=== PATIENT | male | born 1950 | race Hispanic/Latino ===

== ENCOUNTER 2017-08-30 20:02 | Emergency (ER) | payer BC ==
[2017-08-30 20:19] VITALS: O2SAT 98
[2017-08-30 20:43] VITALS: BP 185/65; PULSE 41; RESP 16; TEMP 97.5
[2017-08-30] MEDS ORDERED: TDAP Vaccine 0.5 mL Syr IM ONE (22:19)
--- NOTE | 2017-08-30 22:19 | ED PDOC ---
Arrival/HPI - General Chief Complaint: Upper Extremity Problem/Injury Time Seen by Provider: 08/30/17 20:46 Historian: Patient - History of Present Illness Narrative History of Present Illness (Text): 08/31/17 20:55 66 year old male, who has no significant past medical history presents to the emergency department complaining of slamming his right second digit on his car door at 7AM. Patient denies any numbness, decreased ROM, or any other complaints /injuries. Patient's Tetanus shot is up to date. Time/Duration: Other (This morning ) Symptom Onset: Sudden Symptom Course: Unchanged Activities at Onset: Light Context: Other (Car) Past Medical History - Provider Review Nursing Documentation Reviewed: Yes - Infectious Disease Hx of Infectious Diseases: None - Cardiac Hx Hypertension: Yes - Psychiatric Hx Substance Use: No Family/Social History - Physician Review Nursing Documentation Reviewed: Yes Family/Social History: No Known Family HX Smoking Status: Unknown If Ever Smoked Hx Alcohol Use: No Hx Substance Use: No Allergies/Home Meds Allergies/Adverse Reactions: Allergies No Known Allergies Allergy (Verified 08/30/17 20:17) Home Medications: Home Meds Medication Instructions Recorded Confirmed Nebivolol [Bystolic] 20 mg PO HS 08/30/17 08/30/17 Valsartan [Diovan] 320 mg PO DAILY 08/30/17 08/30/17 hydrALAZINE [hydralazine 0 mg PO HS 08/30/17 08/30/17 Hydrochloride] Review of Systems - Physician Review All systems were reviewed & negative as marked: Yes - Review of Systems Skin: Laceration (on right seconf digit ) Neurological: absent: Other ((-) Numbness on right second digit (-) Decreased ROM) Physical Exam Vital Signs Temp Pulse Resp BP Pulse Ox 08/30/17 20:40 97.5 F L 41 L 16 185/65 H 98 08/30/17 20:09 98.4 F 42 L 20 193/75 H 98 Temperature: Afebrile Blood Pressure: Hypertensive Pulse: Tachycardic Respiratory Rate: Normal Appearance: Positive for: Well-Appearing, Non-Toxic Pain Distress: None Mental Status: Positive for: Alert and Oriented X 3 - Systems Exam Head: Present: Atraumatic, Normocephalic Neck: Present: Normal Range of Motion Back: Present: Normal Inspection Upper Extremity: Present: Normal Inspection, Normal ROM, Other ((+) Distal Sensation (+) 2cm V shaped laceration ). No: Cyanosis, Edema Lower Extremity: Present: Normal Inspection. No: Edema Neurological: Present: GCS=15, CN II-XII Intact, Speech Normal Skin: Present: Warm, Dry, Normal Color. No: Rashes Medical Decision Making ED Course and Treatment: 08/31/17 20:55 Impression: 66 year old male presents complaining of right second digit laceration s/p finger slamming on car door. Plan: -- Bacitracin -- Boostrix Vaccine Inj -- Tylenol -- Hand Right 2nd digit X-Ray -- Reassess and disposition Progress Notes: Performed by the emergency provider Location: Right second digit Length: 2cm Description: {"clean wound edges","no foreign bodies"} Distal CMS: Normal. No deficits. Neurovascularly intact. Anesthesia: Lidocaine 1% Preparation: The wound was cleaned with 4 5.0 Prolene. The area was prepped and draped in the usual sterile fashion. Exploration: The wound was explored and no foreign bodies were found. Procedure: The wound was closed with nylon. In total, 4 were used. Post-Procedure: Good closure and hemostasis. The patient tolerated the procedure well and there were no complications. CSM remains intact. Post procedure dressing applied. Hand Right 2nd digit X-Ray Impression: Read by me, no fracture, no dislocation, no foreign bodies. - RAD Interpretation Radiology Orders: 08/30/17 21:37 HAND RIGHT 2ND DIGIT (FINGER) [RAD] Stat - Medication Orders Current Medication Orders: Discontinued Medications Acetaminophen (Tylenol 325mg Tab) 975 mg PO STAT STA Stop: 08/30/17 20:49 Last Admin: 08/30/17 21:17 Dose: 975 mg MAR Pain/Vitals Document 08/30/17 21:17 YP (Rec: 08/30/17 21:17 YP [id number]) Pain Reassessment Is This A Pain ReAssessment? No Sleep Is patient sleeping during reassessment? No Presence of Pain Presence of Pain Yes Bacitracin (Bacitracin) 1 ea TOP STAT STA Stop: 08/30/17 22:42 Last Admin: 08/30/17 22:55 Dose: 1 ea Tetanus/Reduced Diphtheria/Acell Pertussis (Boostrix Vaccine Inj) 0.5 ml IM .ONCE ONE Stop: 08/30/17 22:20 Last Admin: 08/30/17 22:26 Dose: 0.5 ml Immunization Registry Document 08/30/17 22:26 YP (Rec: 08/30/17 22:26 YP [id number]) Immunization Registry Consent Date 08/30/17 - PA / [facility] / Resident Statement MD/DO has reviewed & agrees with the documentation as recorded. - Scribe Statement The provider has reviewed the documentation as recorded by the Ranjithibe Obinna Bañuelos Provider Scribe Attestation: All medical record entries made by the Scribe were at my direction and personally dictated by me. I have reviewed the chart and agree that the record accurately reflects my personal performance of the history, physical exam, medical decision making, and the department course for this patient. I have also personally directed, reviewed, and agree with the discharge instructions and disposition. Disposition/Present on Arrival - Present on Arrival Any Indicators Present on Arrival: No History of DVT/PE: No History of Uncontrolled Diabetes: No Urinary Catheter: No History of Decub. Ulcer: No History Surgical Site Infection Following: None - Disposition Have Diagnosis and Disposition been Completed?: Yes Diagnosis: Finger laceration Disposition: HOME/ ROUTINE Disposition Time: 22:15 Patient Plan: Discharge Condition: STABLE Discharge Instructions (ExitCare): Finger Laceration (ED) Print Language: NAURUAN Additional Instructions: Thank you for letting us take care of you today. You were treated for finger laceration. The emergency medical care you received today was directed at your acute symptoms. Have sutures removed after 7 days. It may take several days for your symptoms to resolve. Return to the Emergency Department if your symptoms worsen, do not improve, or if you have any other problems. Please contact your doctor in 2 days for re-evaluation and follow up. Bring any paperwork you were given at discharge with you along with any medications you are taking to your follow up visit. Our treatment cannot replace ongoing medical care by a primary care provider (PCP) outside of the emergency department. Thank you for allowing the [facility] team to be part of your care today. If you had an X-Ray : A Radiologist will review the ED reading if any change in treatment is needed we will contact you. Forms: [employer] ([place])
[2017-08-30] MEDS ORDERED: Bacitracin 500 Units/gm Oint Foilpak UD TOP STA (22:41)
--- NOTE | 2017-08-31 11:01 | RAD ---
PROCEDURE: Right Index finger radiographs. HISTORY: INJURY COMPARISON: None. TECHNIQUE: AP radiograph of the right hand, as well as spot oblique and lateral images of index finger were obtained. FINDINGS: RIGHT INDEX FINGER: No evidence of fracture of the 2nd digit. No radiopaque foreign body. Remainder of the right hand (as seen on the AP view) grossly intact. JOINTS: Normal. SOFT TISSUES: There is soft tissue laceration or disruption at the distal aspect of the 2nd digit overlying the distal phalanx. OTHER FINDINGS: None. IMPRESSION: No fracture or radiopaque foreign body.
== END 2017-08-30 23:00 | disposition home or self-care (01) ==
LOC: ED 20:02
DX: S61.210A Laceration without foreign body of right index finger without damage to nail, initial encounter (principal); W23.0XXA Caught, crushed, jammed, or pinched between moving objects, initial encounter; Y93.89 Activity, other specified; Y92.89 Other specified places as the place of occurrence of the external cause; Z23 Encounter for immunization